=== PATIENT | male | born 1980 | race Caucasian/White ===

== ENCOUNTER 2021-06-09 09:47 | Emergency (ER) | payer OTHER, SELFPAY ==
[2021-06-09 09:56] VITALS: BP 152/93; PULSE 80; RESP 18; TEMP 36.1; O2SAT 98; BMI 34.8
--- NOTE | 2021-06-09 10:33 | ED_ITS ---
HPI - Animal Bite General Chief Complaint: Animal Bite Stated Complaint: CAT BITE Time Seen by Provider: 06/09/21 10:33 Source: patient Mode of arrival: ambulatory Limitations: no limitations History of Present Illness HPI narrative: 41-year-old male is here today after sustaining a cat bite yesterday. Patient reports that his CT is up-to-date with vaccinations. Patient does not remember when he last had a tetanus vaccine but it was longer than 5 years ago. Patient reports that his some swelled up when he will come this morning. He washed it with hot water and alcohol. MD complaint: animal bite (Patient's cat up-to-date with vaccinations) Onset (ago): day(s) (Yesterday) Animal: cat Description of animal: household pet Mechanism: bite Location: other (Left thumb) Related Data Previous Rx's Medication Instructions Recorded amoxicillin 875 mg-potassium 1 tab PO BID 10 Days #20 tab 06/09/21 clavulanate 125 mg tablet (Augmentin) Allergies Allergy/AdvReac Type Severity Reaction Status Date / Time No Known Allergies Allergy Verified 06/09/21 09:58 Review of Systems Review of Systems: Constitutional : No Weight loss, No Fever, No Chills, No Night Sweats, No Fatigue, No Malaise ENT/Mouth : No Hearing loss, No Ear Pain, No Nasal Congestion, No Sinus Pain, No Hoarseness, No sore throat, No Rhinorrhea, No Swallowing Difficulty Eyes: No Eye Pain, No Swelling, No Redness, No Foreign Body, No Discharge, No Vision Changes Cardiovascular : No Chest Pain, No SOB, No Dyspnea on Exertion, No Orthopnea, No Edema, No Palpitations Respiratory : No Cough, No Sputum, No Wheezing, No Smoke Exposure, No Dyspnea Gastrointestinal : No Nausea, No Vomiting, No Diarrhea, No Constipation, No abdominal Pain, No Hematochezia, No Melena Genitourinary : no irregular bleeding, No Dysuria, No Urinary Frequency, No Hematuria, No Urinary Incontinence, No Urgency, No Flank Pain, No Urinary Flow Changes, No Hesitancy Musculoskeletal : No joint pain, No Myalgias, No Joint Swelling Skin : No Skin Lesions, No rash, cat bite to left thumb Neuro : No Weakness, No Numbness, No Paresthesias, No Loss of Consciousness, No Dizziness, No Headache Yes all other systems are reviewed and are negative PMFSH Past Medical History Medical History (Updated 06/09/21 @ 10:47 by Shu Sal [facility]) No known health problems Social History Social History Advance Directives: No Advance Directives Information Provided: No Physical Exam Vital Signs: Vital Signs: Last Vital Signs Temp 97.0 F 06/09/21 09:56 Pulse 80 06/09/21 09:56 Resp 18 06/09/21 09:56 BP 152/93 H 06/09/21 09:56 Pulse Ox 98 06/09/21 09:56 Body Mass Index 34.8 Const: General: healthy appearing, no acute distress and well developed Nutritional Appearance: well nourished Orientation/consciousness: patient oriented x3 Neck: Neck: Yes normal visual inspection, Yes full ROM and Yes trachea midline Thyroid: Thyroid normal Resp: Auscultation: clear to auscultation bilaterally Cardio: Rate: regular rate Rhythm: regular rhythm GI: Inspection: Yes normal to inspection and No distended Palpation (GI): No hepatosplenomegaly present Auscultation: normal bowel sounds Skin: Other: General skin exam: elasticity normal, turgor normal and dry skin Trauma: other (Cat bite to left thumb) Neuro: General: patient oriented x3 Course Course Course Narrative: 40-year-old male is here today after sustaining a cat bite yesterday. Patient reports that this is his house pet and it is up-to-date with vaccinations. Patient's last tetanus vaccine was over 5 years ago. Will update tetanus today. Patient reports that his fingers swelled up this morning and he cleaned it well with hot water and alcohol. I will start him on Augmentin. He was instructed to monitor his bite for increased redness, drainage, swelling and warmth. He was instructed to finish all of the antibiotics. He was instructed to return to emergency department if his symptoms will get worse Discharge Plan Discharge Clinical Impression: Bite by animal Cat bite Qualifiers: Encounter type: initial encounter Qualified Code(s): W55.01XA - Bitten by cat, initial encounter Patient Disposition: Home, Self-Care Instructions: Animal Bite (ED) Additional Instructions: You were seen here today after cat bite. Make sure you keep the area clean. Your tetanus was updated today. You were started on Augmentin please finish all the antibiotics. You may return to emergency department if her symptoms will get worse or if you experience any additional concerning symptoms. Please follow-up with your primary care doctor for wound check or you may return to emergency department the wound will be getting worse. Prescriptions: New amoxicillin-pot clavulanate [Augmentin] 875-125 mg tablet 1 tab PO BID 10 Days Qty: 20 RF: 0 Interventions: ED Discharge Assessment Last Done: 06/09/21 10:56 Discharge Date/Time: 06/09/21 10:56
[2021-06-09] MEDS: Amoxicillin/Potassium Clav 875 MG TABLET PO (10:40)
[2021-06-09] MEDS: Diphth,Pertus(ACell),Tet Adult 0.5 ML SYRINGE IM (10:40)
== END 2021-06-09 10:56 | disposition home or self-care (01) ==
PROVIDERS: Emergency Provider Emergency Medicine
DX: S60.372A Other superficial bite of left thumb, initial encounter (principal); S60.512A Abrasion of left hand, initial encounter; M79.642 Pain in left hand; W55.01XA Bitten by cat, initial encounter; Y93.9 Activity, unspecified; Y92.9 Unspecified place or not applicable; Y99.9 Unspecified external cause status
CPT/HCPCS: 90471; 90715; 99283; 99284

== ENCOUNTER 2021-09-18 09:38 | Outpatient (REF) | payer OTHER, SELFPAY ==
[2021-09-18 10:32] LABS: Binax Internal Control QC Valid; Binax Now Covid-19 Ag Positive (Negative)
== END 2021-09-18 09:39 | disposition home or self-care (01) ==
LOC: HO.LAB 09:38
PROVIDERS: Visit Provider Internal Medicine
DX: Z20.822 Contact with and (suspected) exposure to COVID-19 (principal)
CPT/HCPCS: C9803

== ENCOUNTER 2021-10-01 10:39 | Outpatient (REF) | payer OTHER, SELFPAY ==
[2021-10-01 11:15] LABS: Binax Internal Control QC Valid; Binax Now Covid-19 Ag Negative (Negative)
== END 2021-10-01 10:40 | disposition home or self-care (01) ==
LOC: HO.LAB 10:39
PROVIDERS: PCP Internal Medicine; Visit Provider Internal Medicine
DX: Z20.822 Contact with and (suspected) exposure to COVID-19 (principal)
CPT/HCPCS: C9803

== ENCOUNTER 2021-12-21 09:35 | Emergency (ER) | payer OTHER, SELFPAY ==
--- NOTE | ~2021-12-21 | CT_ITS ---
EXAMINATION: CT ABDOMEN AND PELVIS WITH CONTRAST CLINICAL INFORMATION: 41-year-old male with left lower quadrant abdominal pain COMPARISON: None TECHNIQUE: Multidetector volumetric images were obtained from the superior aspect of the liver through the pubic symphysis following administration 85 mL of Omnipaque 350 intravenous contrast. Sagittal and coronal reformatted images were obtained on the technologist's workstation. Oral contrast: No This CT examination was performed using dose optimization techniques as appropriate, variously including the following: *Automated exposure control *Adjustment of mA and/or kV according to patient size (this includes techniques or standardized protocols for targeted exams where dose is matched to indication/reason for exam; i.e. extremities or head) *Use of iterative reconstruction technique DLP: 919 mGy-cm FINDINGS: LUNG BASES: Linear atelectasis in the basilar. LIVER, GALLBLADDER, AND BILIARY TREE: Liver is of low attenuation heterogeneous due to hepatic steatosis without intrahepatic masses or ductal dilatation seen. The gallbladder is unremarkable with no evidence of radiopaque gallstones, gallbladder wall thickening, or obvious pericholecystic inflammatory changes. PANCREAS: Unremarkable. SPLEEN: Unremarkable. ADRENAL GLANDS: Unremarkable. KIDNEYS AND URETERS: The kidneys are normal in size, shape, and attenuation. No hydronephrosis, hydroureter, or calculi seen. No perinephric stranding. BLADDER: Unremarkable. GASTROINTESTINAL TRACT: The small and large bowel are unremarkable. The appendix is unremarkable. There is fat-containing ovoid shape 2.8 cm long density adjacent to the descending, with high density seen rim, surrounded by inflammatory fat stranding and mild thickening of adjacent peritoneum. Loops of colon are unremarkable with a few scattered diverticuli. Appendix not identified. Findings consistent with the appearance of epiploic appendicitis. ABDOMINAL WALL: There is small fat-containing umbilical hernia. There is small fat-containing inguinal hernias. LYMPH NODES: Normal. VASCULAR: Unremarkable. PELVIC VISCERA: There is small amount of fluid in the pelvis OSSEOUS STRUCTURES: Unremarkable. CT/CT abdomen pelvis w con IMPRESSION: Epiploic appendicitis. Hepatic steatosis. Small inguinal and umbilical hernia with fat. Basilar atelectasis Fleischner guidelines were followed.
[2021-12-21 09:47] VITALS: BP 129/84; PULSE 72; RESP 18; TEMP 36.1; O2SAT 98; BMI 39.2
--- NOTE | 2021-12-21 10:58 | ED_ITS ---
HPI - Abdominal Pain General Chief Complaint: Abdominal Pain Stated Complaint: abd pain Time Seen by Provider: 12/21/21 10:57 Source: patient Mode of arrival: ambulatory Limitations: no limitations History of Present Illness MD elicited complaint: abdominal pain Pertinent past history: none Onset (ago): day(s) (4) Pain Consistency: other (worsening) Location: LLQ Severity: severe Quality: aching and fullness Radiation: none Migration to: no migration Exacerbating factors: movement Relieving factors: nothing Associated symptoms: nausea, diarrhea and chills Related Data Previous Rx's Medication Instructions Recorded amoxicillin 875 mg-potassium 1 tab PO BID 10 Days #20 tab 06/09/21 clavulanate 125 mg tablet (Augmentin) hydrocodone 5 mg-acetaminophen 325 1 tab PO Q6H PRN #10 tab 12/21/21 mg tablet ibuprofen 600 mg tablet 600 mg PO Q6H PRN #30 tab 12/21/21 ondansetron 4 mg disintegrating 4 mg PO Q8H PRN #20 tab 12/21/21 tablet Allergies Allergy/AdvReac Type Severity Reaction Status Date / Time No Known Allergies Allergy Verified 06/09/21 09:58 Review of Systems Review of Systems Constitutional : No Weight loss, No Fever, pos Chills ENT/Mouth : No sore throat, No Rhinorrhea Eyes: No Swelling, No Redness Cardiovascular : No Chest Pain, No SOB, NoEdema Respiratory : No Cough, No Sputum, No Wheezing Gastrointestinal : Positive Nausea, no Vomiting, positive Diarrhea, positive abdominal Pain, No Hematochezia, No Melena Genitourinary : No Dysuria, No Urinary Frequency, No Hematuria, No Urgency Musculoskeletal : No joint pain, No Myalgias, No Joint Swelling Skin : No Skin Lesions, No rash Neuro : No Weakness, No Numbness, No Dizziness, No Headache Psych : No Anxiety/Panic, No Depression Heme/Lymph: No Bruising, No Lymphadenopathy Endocrine : No Polyuria, No Polydipsia All other systems reviewed and are negative. [facility] Past Medical History Attestation statement: The following information was validated with the patient. Medical History No known health problems Social History Social History (Updated 12/21/21 @ 11:29 by Luz Maria Moody DO) Alcohol intake: never Patient Tobacco Use Status: Current everyday Tobacco user Use of substances other than those prescribed or required for medical reasons: No Advance Directives: Yes Advance Directives Information Provided: Yes Advance Directives on File: No Physical Exam ED Vital Signs: Vital Signs - 24 hr 12/21/21 09:47 12/21/21 11:46 Temperature 96.9 F 97.9 F Pulse Rate 72 65 Respiratory Rate 18 18 Blood Pressure 129/84 126/81 Pulse Oximetry 98 96 BMI result Body Mass Index 39.2 Appearance: Alert. Oriented X3. No acute distress. Eyes: Pupils equal, round and reactive to light. ENT: Pharynx normal. Neck: Normal inspection. Neck supple. CVS: Normal heart rate and rhythm. Pulses normal. Respiratory: No respiratory distress. Breath sounds normal. Abdomen: Soft and moderate LLQ ttp with rebound noted Skin: Skin warm and dry. Normal skin color. Normal skin turgor. Extremities: No lower extremity edema. No calf ttp Neuro: Oriented X 3. No motor deficit. No sensory deficit. Course Course Course Narrative: no WBC count, epiploic appendagitis MDM - Abdominal Pain MDM Narrative Medical decision making narrative: 41 yo male with no PMH or surgeries comes in with c/o LLQ pain n/v/d chills he has rebound on exam. Symptoms present x 4 days. At this time will need labs, cultures, lactic acid. CT scan for diverticulitis - given rebound there is a concern for perforation vs abscess. Dispo per results and findings. Lab Data Result diagrams: 12/21/21 11:33 12/21/21 11:33 Labs: Lab Results 12/21/21 12/21/21 12/21/21 Range/Units 11:33 11:33 11:33 WBC 7.1 (4.8-10.8) X10*3/uL RBC 4.84 (4.60-5.80) X10*6/uL Hgb 13.5 L (14.0-18.0) g/dl Hct 40.5 L (42.0-52.0) % MCV 83.7 (80.0-98.0) fL MCH 27.9 (27.0-33.0) pg MCHC 33.3 (31.0-36.0) g/dl RDW 11.5 (11.0-16.0) % Plt Count 216 (160-400) X10*3/uL MPV 10.5 (9.4-12.4) fL Immature Gran % (Auto) 0.1 (0.0-0.4) % Neut % (Auto) 47.6 (45-73) % Lymph % (Auto) 40.0 (20-40) % Charlton % (Auto) 9.6 (2-11) % Eos % (Auto) 2.4 (0-4) % Baso % (Auto) 0.3 (0-2) % Lymph # (Auto) 2.8 (1.2-4.9) X10*3/uL Charlton # (Auto) 0.7 (0.1-1.2) X10*3/uL Eos # (Auto) 0.2 (0.0-0.4) X10*3/uL Baso # (Auto) 0.0 (0.0-0.2) X10*3/uL Abs Immat Gran (auto) 0.01 (0.00-0.03) X10*3/uL Absolute Neuts (auto) 3.4 (2.0-8.3) x10*3/uL Absolute Nucleated RBC 0.000 (0.0-0.012) X10*3/uL Nucleated RBC % (auto) 0.0 (0.0-0.2) /100WBC Sodium 139 (135-145) mmol/L Potassium 3.9 (3.3-5.1) mmol/L Chloride 106 (96-108) mmol/L Carbon Dioxide 25 (22-29) mmol/L Anion Gap 12 (12-20) BUN 13 (9-16) mg/dL Creatinine 0.82 (0.5-1.4) mg/dL Estim Creat Clear Calc 158.2 Estimated GFR > 60 Random Glucose 93 (60-115) mg/dL Lactic Acid 0.6 (0.5-2.0) mmol/L Calcium 9.8 (8.4-10.2) mg/dL Magnesium 2.0 (1.6-2.6) mg/dL Total Bilirubin 0.7 (0.0-1.0) mg/dL Direct Bilirubin 0.2 (0.0-0.5) mg/dL AST 24 (5-37) U/L ALT 51 H (0-40) U/L Alkaline Phosphatase 66 (39-117) U/L Total Protein 7.1 (6.5-8.0) g/dL Albumin 4.5 (3.5-5.0) g/dL Lipase 14 (8-78) U/L Urine Color Urine Appearance Urine pH (5.0-8.0) Ur Specific Huggins (1.005-1.025) Urine Protein (NEG-TRACE) MG/DL Urine Glucose (UA) (NEG) MG/DL Urine Ketones (NEG) MG/DL Urine Blood (NEG) Urine Nitrite (NEG) Ur Leukocyte Esterase (NEG) COVID-19 (PORTER) (Negative) COVID-19 Clin Com 12/21/21 12/21/21 Range/Units 11:33 11:33 WBC (4.8-10.8) X10*3/uL RBC (4.60-5.80) X10*6/uL Hgb (14.0-18.0) g/dl Hct (42.0-52.0) % MCV (80.0-98.0) fL MCH (27.0-33.0) pg MCHC (31.0-36.0) g/dl RDW (11.0-16.0) % Plt Count (160-400) X10*3/uL MPV (9.4-12.4) fL Immature Gran % (Auto) (0.0-0.4) % Neut % (Auto) (45-73) % Lymph % (Auto) (20-40) % Charlton % (Auto) (2-11) % Eos % (Auto) (0-4) % Baso % (Auto) (0-2) % Lymph # (Auto) (1.2-4.9) X10*3/uL Charlton # (Auto) (0.1-1.2) X10*3/uL Eos # (Auto) (0.0-0.4) X10*3/uL Baso # (Auto) (0.0-0.2) X10*3/uL Abs Immat Gran (auto) (0.00-0.03) X10*3/uL Absolute Neuts (auto) (2.0-8.3) x10*3/uL Absolute Nucleated RBC (0.0-0.012) X10*3/uL Nucleated RBC % (auto) (0.0-0.2) /100WBC Sodium (135-145) mmol/L Potassium (3.3-5.1) mmol/L Chloride (96-108) mmol/L Carbon Dioxide (22-29) mmol/L Anion Gap (12-20) BUN (9-16) mg/dL Creatinine (0.5-1.4) mg/dL Estim Creat Clear Calc Estimated GFR Random Glucose (60-115) mg/dL Lactic Acid (0.5-2.0) mmol/L Calcium (8.4-10.2) mg/dL Magnesium (1.6-2.6) mg/dL Total Bilirubin (0.0-1.0) mg/dL Direct Bilirubin (0.0-0.5) mg/dL AST (5-37) U/L ALT (0-40) U/L Alkaline Phosphatase (39-117) U/L Total Protein (6.5-8.0) g/dL Albumin (3.5-5.0) g/dL Lipase (8-78) U/L Urine Color YELLOW Urine Appearance CLEAR Urine pH 6.5 (5.0-8.0) Ur Specific Huggins 1.020 (1.005-1.025) Urine Protein NEG (NEG-TRACE) MG/DL Urine Glucose (UA) NEG (NEG) MG/DL Urine Ketones NEG (NEG) MG/DL Urine Blood NEG (NEG) Urine Nitrite NEG (NEG) Ur Leukocyte Esterase NEG (NEG) COVID-19 (PORTER) Negative (Negative) COVID-19 Clin Com See Note Discharge Plan Discharge Clinical Impression: Abdominal pain, Epiploic appendagitis Patient Disposition: Home, Self-Care Instructions: Abdominal Pain (ED) Additional Instructions: return to ED for any worsening symptoms or concerns FINDINGS: LUNG BASES: Linear atelectasis in the basilar.? LIVER, GALLBLADDER, AND BILIARY TREE: Liver is of low attenuation heterogeneous due to hepatic steatosis without intrahepatic masses or ductal dilatation seen. The gallbladder is unremarkable with no evidence of radiopaque gallstones, gallbladder wall thickening, or obvious pericholecystic inflammatory changes.? PANCREAS: Unremarkable.? SPLEEN: Unremarkable.? ADRENAL GLANDS: Unremarkable.? KIDNEYS AND URETERS: The kidneys are normal in size, shape, and attenuation. No hydronephrosis, hydroureter, or calculi seen. No perinephric stranding. ? BLADDER: Unremarkable.? GASTROINTESTINAL TRACT: The small and large bowel are unremarkable. The appendix is unremarkable. There is fat-containing ovoid shape 2.8 cm long density adjacent to the descending, with high density seen rim, surrounded by inflammatory fat stranding and mild thickening of adjacent peritoneum. Loops of colon are unremarkable with a few scattered diverticuli. Appendix not identified. Findings consistent with the appearance of epiploic appendicitis. ABDOMINAL WALL: There is small fat-containing umbilical hernia. There is small fat-containing inguinal hernias.? LYMPH NODES: Normal. VASCULAR: Unremarkable. PELVIC VISCERA: There is small amount of fluid in the pelvis? OSSEOUS STRUCTURES: Unremarkable.? CT/CT abdomen pelvis w con IMPRESSION: Epiploic appendicitis. Hepatic steatosis. Small inguinal and umbilical hernia with fat. Basilar atelectasis? ? Fleischner guidelines were followed. Prescriptions: New hydrocodone-acetaminophen 5-325 mg tablet 1 tab PO Q6H PRN (Reason: pain) Qty: 10 0RF ibuprofen 600 mg tablet 600 mg PO Q6H PRN (Reason: pain) Qty: 30 0RF ondansetron 4 mg tablet,disintegrating 4 mg PO Q8H PRN (Reason: nausea and vomiting) Qty: 20 0RF No Action amoxicillin-pot clavulanate [Augmentin] 875-125 mg tablet 1 tab PO BID 10 Days Qty: 20 0RF Referrals: Valencia Lubin MD [Primary Care Provider] - 3 days (if not better) Stand Alone Forms: Work/School Release
[2021-12-21 11:39] LABS: MANUAL DIFF FLAG NO
[2021-12-21 11:42] LABS: Basophils Percent Auto 0.3 % (0-2); Eosinophils Absolute Auto 0.2 X10*3/uL (0.0-0.4); Eosinophils Percent Auto 2.4 % (0-4); Hematocrit 40.5 % (42.0-52.0); Hemoglobin 13.5 g/dl (14.0-18.0); Imm Gran Abs Auto 0.01 X10*3/uL (0.00-0.03); Imm Gran Pct Auto 0.1 % (0.0-0.4); Lymphocytes Absolute Auto 2.8 X10*3/uL (1.2-4.9); Mean Corpuscular HGB Conc 33.3 g/dl (31.0-36.0); Mean Corpuscular Hemoglobin 27.9 pg (27.0-33.0); Mean Corpuscular Volume 83.7 fL (80.0-98.0); Mean Platelet Volume 10.5 fL (9.4-12.4); Monocytes Absolute Auto 0.7 X10*3/uL (0.1-1.2); Monocytes Percent Auto 9.6 % (2-11); Neutrophils Absolute Auto 3.4 x10*3/uL (2.0-8.3); Neutrophils Percent Auto 47.6 % (45-73); Platelet Count 216 X10*3/uL (160-400); Red Blood Count 4.84 X10*6/uL (4.60-5.80); Red Cell Distribution Width 11.5 % (11.0-16.0); White Blood Count 7.1 X10*3/uL (4.8-10.8)
[2021-12-21] MEDS: Morphine Sulfate 4 MG/ML CARTRIDGE IVPUSH (11:42)
[2021-12-21] MEDS: ondansetron HCL 4 MG/2 ML VIAL IVPUSH (11:42)
[2021-12-21] MEDS: 0.9 % Sodium Chloride 1,000 ML 999 ML IVCONT (11:42)
[2021-12-21 11:43] LABS: Appearance Urine CLEAR; Color Urine YELLOW; Glucose Urine UA NEG (NEG); Leukocyte Esterase Urine NEG (NEG); Nitrite Urine NEG (NEG); PH 6.5 (5.0-8.0); Urine Blood NEG (NEG); Urine Ketones NEG (NEG); Urine Protein NEG (NEG-TRACE)
--- NOTE | 2021-12-21 11:45 | PC.NURSE ---
patient a&ox3, vss, pt ambulated to bathroom-urine obtained, covid swab obtained, iv established, labs drawn, pt medicated per order, c/o 03/17 llq abd pain, call roach within reach will continue to monitor.
[2021-12-21 11:46] VITALS: BP 126/81; PULSE 65; RESP 18; TEMP 36.6; O2SAT 96
[2021-12-21 11:53] LABS: Lactic Acid 0.6 mmol/L (0.5-2.0)
[2021-12-21 11:59] LABS: Alanine Aminotransferase 51 U/L (0-40); Albumin Level 4.5 g/dL (3.5-5.0); Alkaline Phosphatase 66 U/L (39-117); Anion Gap 12 (12-20); Aspartate Amino Transferase 24 U/L (5-37); Bilirubin Direct 0.2 mg/dL (0.0-0.5); Bilirubin Total 0.7 mg/dL (0.0-1.0); Blood Urea Nitrogen 13 mg/dL (9-16); Calcium 9.8 mg/dL (8.4-10.2); Carbon Dioxide 25 mmol/L (22-29); Chloride 106 mmol/L (96-108); Creatinine Clr Calc Pharmacy 158.2; Estimated Glomerular Filt Rate > 60; Glucose Random 93 mg/dL (60-115); Lipase 14 U/L (8-78); Potassium 3.9 mmol/L (3.3-5.1); Sodium 139 mmol/L (135-145); Total Protein 7.1 g/dL (6.5-8.0)
[2021-12-21] MEDS: iohexoL 350 MG/ML 100 ML INFUS..BTL 85 ML IV (12:10)
[2021-12-21 12:21] LABS: COVID-19 Test Negative (Negative); IDNOW Serial# 16C4AD1C
[2021-12-21 13:38] VITALS: BP 122/77; PULSE 65; RESP 18; TEMP 36.5; O2SAT 97
--- NOTE | 2021-12-21 13:38 | PC.NURSE ---
patient sleeping, woke to verbal stimulus, vss, pt c/o 03/17 pain to llq abdomen, call roach within reach, will continue to monitor.
== END 2021-12-21 14:01 | disposition home or self-care (01) ==
PROVIDERS: Emergency Provider Emergency Medicine; PCP Internal Medicine
DX: R10.32 Left lower quadrant pain (principal); K63.89 Other specified diseases of intestine; F17.200 Nicotine dependence, unspecified, uncomplicated; Z71.6 Tobacco abuse counseling; Z20.822 Contact with and (suspected) exposure to COVID-19; Z79.899 Other long term (current) drug therapy
CPT/HCPCS: 74177; 80048; 80076; 81003; 83605; 83690; 83735; 85025; 87040; 87635; 96361; 96374; 96375; 99284; J2270; J2405; Q9967

== ENCOUNTER → 2021-12-26 13:40 | Outpatient (BNVA) | payer OTHER, SELFPAY | PROVIDERS: PCP Internal Medicine; Referring Provider Internal Medicine; Visit Provider Physician Assistant | DX: Z13.89 Encounter for screening for other disorder (principal) ==

== ENCOUNTER 2022-01-25 08:05 | Outpatient (REF) | payer OTHER, SELFPAY ==
[2022-01-25 11:06] LABS: MANUAL DIFF FLAG NO
[2022-01-25 11:19] LABS: Basophils Percent Auto 0.5 % (0-2); Eosinophils Absolute Auto 0.2 X10*3/uL (0.0-0.4); Eosinophils Percent Auto 3.9 % (0-4); Hemoglobin 14.6 g/dl (14.0-18.0); Imm Gran Abs Auto 0.01 X10*3/uL (0.00-0.03); Imm Gran Pct Auto 0.2 % (0.0-0.4); Lymphocytes Absolute Auto 2.2 X10*3/uL (1.2-4.9); Lymphocytes Percent Auto 36.4 % (20-40); Mean Corpuscular HGB Conc 32.4 g/dl (31.0-36.0); Mean Corpuscular Hemoglobin 27.4 pg (27.0-33.0); Mean Corpuscular Volume 84.4 fL (80.0-98.0); Mean Platelet Volume 11.2 fL (9.4-12.4); Monocytes Absolute Auto 0.5 X10*3/uL (0.1-1.2); Monocytes Percent Auto 8.6 % (2-11); Neutrophils Absolute Auto 3.1 x10*3/uL (2.0-8.3); Neutrophils Percent Auto 50.4 % (45-73); Platelet Count 254 X10*3/uL (160-400); Red Blood Count 5.33 X10*6/uL (4.60-5.80); Red Cell Distribution Width 11.9 % (11.0-16.0); White Blood Count 6.2 X10*3/uL (4.8-10.8)
[2022-01-25 11:32] LABS: Alanine Aminotransferase 64 U/L (0-40); Albumin Level 4.7 g/dL (3.5-5.0); Alkaline Phosphatase 65 U/L (39-117); Anion Gap 11 (12-20); Aspartate Amino Transferase 25 U/L (5-37); Bilirubin Total 0.4 mg/dL (0.0-1.0); Blood Urea Nitrogen 8 mg/dL (9-16); Calcium 10.3 mg/dL (8.4-10.2); Carbon Dioxide 31 mmol/L (22-29); Chloride 106 mmol/L (96-108); Cholesterol 182 mg/dL; Estimated Glomerular Filt Rate > 60; Glucose Fasting 89 mg/dL (60-99); HDL Cholesterol 43 mg/dL; LDL Cholesterol Calculated 117 mg/dl; Potassium 5.3 mmol/L (3.3-5.1); Sodium 143 mmol/L (135-145); Total Protein 7.5 g/dL (6.5-8.0); Triglycerides 110 mg/dL
[2022-01-25 11:58] LABS: TSH reflex Free T4 1.76 uIU/mL (0.32-4.0)
== END 2022-01-25 08:06 | disposition home or self-care (01) ==
LOC: HO.HMGCLDS 08:05
PROVIDERS: Visit Provider Internal Medicine
DX: Z00.01 Encounter for general adult medical examination with abnormal findings (principal); E66.09 Other obesity due to excess calories; K63.89 Other specified diseases of intestine; K76.0 Fatty (change of) liver, not elsewhere classified; R10.32 Left lower quadrant pain; R93.5 Abnormal findings on diagnostic imaging of other abdominal regions, including retroperitoneum
CPT/HCPCS: 36415; 80053; 80061; 84443; 85025

== ENCOUNTER 2022-02-06 17:41 | Emergency (ER) | payer OTHER, SELFPAY ==
--- NOTE | ~2022-02-06 | CT_ITS ---
EXAMINATION: CT ABDOMEN AND PELVIS WITHOUT CONTRAST CLINICAL INFORMATION: Left lower abdominal pain with known history of hernia COMPARISON: CT abdomen pelvis 12/21/2021 TECHNIQUE: Multidetector volumetric imaging was performed from the superior aspect of the liver through the pubic symphysis. Sagittal and coronal reformatted images were obtained on the technologist's workstation. This CT examination was performed using dose optimization techniques as appropriate, variously including the following: *Automated exposure control *Adjustment of mA and/or kV according to patient size (this includes techniques or standardized protocols for targeted exams where dose is matched to indication/reason for exam; i.e. extremities or head) *Use of iterative reconstruction technique DLP: 1017 mGy-cm FINDINGS: LUNG BASES: The visualized lung bases are unremarkable. LIVER, GALLBLADDER, AND BILIARY TREE: The liver is enlarged measuring 21.6 cm in greatest length and demonstrates decreased attenuation consistent with hepatic steatosis. Normal in size, shape, and attenuation. No focal hepatic lesion or biliary ductal dilatation is present. The gallbladder is unremarkable with no evidence of radiopaque gallstones, gallbladder wall thickening, or obvious pericholecystic inflammatory changes. PANCREAS: Unremarkable. SPLEEN: Mild splenomegaly with the spleen measuring 12.8 cm in greatest transverse dimension. ADRENAL GLANDS: Unremarkable. KIDNEYS AND URETERS: The kidneys are normal in size, shape, and attenuation. No hydronephrosis, hydroureter, or calculi seen. No perinephric stranding. BLADDER: Unremarkable. GASTROINTESTINAL TRACT: The small and large bowel are unremarkable. The appendix is unremarkable. ABDOMINAL WALL: No significant hernia is appreciated. LYMPH NODES: Normal. VASCULAR: Unremarkable. PELVIC VISCERA: Unremarkable. OSSEOUS STRUCTURES: Unremarkable. CT/CT abdomen pelvis wo con IMPRESSION: A cause for the patient's acute left lower quadrant pain has not been found. Incidental note made of enlarged fatty liver and splenomegaly Fleischner guidelines were followed.
[2022-02-06 18:37] VITALS: BP 119/40; PULSE 84; RESP 18; TEMP 36.6; O2SAT 100; BMI 383.5
[2022-02-06 20:18] LABS: MANUAL DIFF FLAG NO
[2022-02-06 20:21] LABS: Basophils Percent Auto 0.4 % (0-2); Eosinophils Absolute Auto 0.2 X10*3/uL (0.0-0.4); Eosinophils Percent Auto 2.1 % (0-4); Hematocrit 43.4 % (42.0-52.0); Hemoglobin 14.6 g/dl (14.0-18.0); Imm Gran Abs Auto 0.02 X10*3/uL (0.00-0.03); Imm Gran Pct Auto 0.2 % (0.0-0.4); Lymphocytes Absolute Auto 2.9 X10*3/uL (1.2-4.9); Lymphocytes Percent Auto 36.2 % (20-40); Mean Corpuscular HGB Conc 33.6 g/dl (31.0-36.0); Mean Corpuscular Hemoglobin 27.9 pg (27.0-33.0); Mean Corpuscular Volume 82.8 fL (80.0-98.0); Mean Platelet Volume 10.8 fL (9.4-12.4); Monocytes Absolute Auto 0.8 X10*3/uL (0.1-1.2); Monocytes Percent Auto 9.7 % (2-11); Neutrophils Absolute Auto 4.1 x10*3/uL (2.0-8.3); Neutrophils Percent Auto 51.4 % (45-73); Platelet Count 244 X10*3/uL (160-400); Red Blood Count 5.24 X10*6/uL (4.60-5.80); Red Cell Distribution Width 11.7 % (11.0-16.0)
[2022-02-06 20:39] LABS: Alanine Aminotransferase 55 U/L (0-40); Albumin Level 4.7 g/dL (3.5-5.0); Alkaline Phosphatase 68 U/L (39-117); Anion Gap 11 (12-20); Aspartate Amino Transferase 24 U/L (5-37); Bilirubin Direct < 0.2 mg/dL (0.0-0.5); Bilirubin Total 0.2 mg/dL (0.0-1.0); Blood Urea Nitrogen 16 mg/dL (9-16); Calcium 10.1 mg/dL (8.4-10.2); Carbon Dioxide 27 mmol/L (22-29); Chloride 106 mmol/L (96-108); Creatinine Clr Calc Pharmacy 852.4; Estimated Glomerular Filt Rate > 60; Glucose Random 93 mg/dL (60-115); Potassium 4.6 mmol/L (3.3-5.1); Sodium 139 mmol/L (135-145); Total Protein 7.6 g/dL (6.5-8.0)
--- NOTE | 2022-02-06 21:46 | ED.ABDPAIN ---
HPI - Abdominal Pain General Chief Complaint: Abdominal Pain Stated Complaint: abd pain Time Seen by Provider: 02/06/22 18:20 Source: patient Mode of arrival: ambulatory Limitations: no limitations History of Present Illness HPI narrative: 41-year-old male came in for evaluation of abdominal pain. Left lower quadrant abdominal pain for 4 weeks, started as severe pain now pain is milder but more or less constant 5/10, pain sometimes associated with nausea but no vomiting, patient had a normal bowel movement and passing flatus, no change in bowel habitus, nothing make it worse or better, pain is mostly localized in the left lower quadrant area with no radiation. No fever, no chills, no urinary frequency, no dysuria. Patient has no past surgical history. 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 Related Data Previous Rx's Medication Instructions Recorded ibuprofen 600 mg tablet 600 mg PO Q6H PRN #30 tab 12/21/21 docusate sodium 100 mg capsule 200 mg PO BEDTIME #60 cap 12/26/21 (Colace) docusate sodium 100 mg capsule 200 mg PO BEDTIME #60 cap 12/26/21 (Colace) metronidazole 500 mg tablet 500 mg PO Q8H #30 tab 12/26/21 omeprazole 20 mg capsule,delayed 20 mg PO DAILY #30 cap 12/26/21 release promethazine 25 mg tablet 25 mg PO TID PRN 7 Days #21 tab 12/26/21 sennosides 8.6 mg capsule (senna) 8.6 mg PO DAILY PRN #30 cap 12/26/21 Allergies Allergy/AdvReac Type Severity Reaction Status Date / Time ciprofloxacin [From Cipro] Allergy Abdominal Verified 01/25/22 08:04 Pain Review of Systems Review of Systems All other systems are reviewed and are negative Constitutional: Reports as per HPI and Reports no additional constitutional complaints Eyes: Reports as per HPI and Reports no additional eye complaints Reports system reviewed and no additional complaints, except as documented Cardiovascular: Reports as per HPI and Reports no additional cardiovascular complaints Respiratory: Reports as per HPI and Reports no additional respiratory complaints Gastrointestinal: Reports as per HPI and Reports no additional gastrointestinal complaints Genitourinary: Reports no additional female genitourinary complaints Musculoskeletal: Reports no additional musculoskeletal complaints Skin/Breast: Reports system reviewed and no additional complaints, except as docu Psychiatric: Reports no additional psychiatric complaints Endocrine: Reports no additional endocrine complaints Hematologic/Lymphatic: Reports no additional hematologic/lymphatic complaints Allergic/Immunologic: Reports no additional allergic/immunologic complaints Reports system reviewed and no additional complaints, except as documented and Reports Abnormal speech present [facility] Past Medical History Medical History No known health problems Family History Family History Mother Diabetes Social History Social History Household Members Other:: 11 y/o Housing: House Alcohol intake: never Patient Tobacco Use Status: Former Tobacco user Cigarettes Per Day: 3 Smoked in Last 30 Days: Yes e-Cigarette/Vaping Use: Never Used Use of substances other than those prescribed or required for medical reasons: No Advance Directives: No Advance Directives Information Provided: No service: No Current occupational status: employed Cognitive needs: No Hearing needs: No Vision needs: No Physical Exam ED Vital Signs: Vital Signs - 24 hr 02/06/22 18:37 02/06/22 22:00 02/06/22 23:19 Temperature 97.8 F Pulse Rate 84 66 66 Respiratory Rate 18 18 16 Blood Pressure 119/40 L 141/82 H 122/82 Pulse Oximetry 100 99 97 BMI result Body Mass Index 383.5 Vital signs have been reviewed as appeared to be correct. Blood pressure normal. Heart rate normal. Respiration rate normal. Temperature normal. Oxygen saturation normal. Appearance: Alert. Oriented X3. No acute distress. Head: Normal external exam. Normocephalic. Atraumatic. No Franco signs noted. No raccoon eyes noted Eyes: PERRLA. EOMI. Conjunctiva and sclera normal. Eyelids normal. ENT: TM's Normal. Pharynx normal. Uvula midline. Moist mucous membranes. No trismus noted. No drooling noted. No muffled voice noted. Neck: Normal inspection. Neck supple. FROM. No adenopathy. Thyroid Normal. No meningeal signs. No neck mass noted. CVS: Normal heart rate and rhythm. Heart sound normal. No murmurs noted. Pulses normal throughout. Respiratory: No respiratory distress. Painless inspiration. Breath sounds normal. No wheezes/rales/rhonchi noted. Chest nontender. No accessory muscle usage noted or decreased air movement noted. Abdomen: Soft, obese and nontender. Bowel sounds normal in all 4 quadrants. No distention noted. No organomegaly noted. No visible injury noted. Back: No CVA tenderness. Full range of motion noted. Skin: Skin warm and dry. Normal skin color. Normal skin turgor. No rashes/lesions/lacerations noted. Extremities: No lower extremity edema. Extremities exhibit normal range of motion. Extremities nontender. Neuro: Oriented X 3. Cranial nerve exam: II-XII are grossly intact No motor deficit. No sensory deficit. Reflexes normal. Course Course Course Narrative: Assessment and plan. 41 years old male with history of fatty liver, patient had recent CT which showed epiploic appendicitis and fat containing umbilical hernia with small fat containing left inguinal hernia. Patient's labs today are unremarkable, physical exam show no tenderness in abdomen, repeat CT with comparing with the previous CT there is resolution of the epiploic appendicitis, there was no fat containing hernia, no causes of patient's symptoms was revealed on the CT. Patient was reassured and instructed to follow-up with his GI doctor to continue management of fatty liver. MDM - Abdominal Pain Lab Data Attestation: I reviewed the patient's lab results. Result diagrams: 02/06/22 20:11 02/06/22 20:11 Labs: Lab Results 02/06/22 02/06/22 02/06/22 Range/Units 20:11 20:11 22:52 WBC 8.0 (4.8-10.8) X10*3/uL RBC 5.24 (4.60-5.80) X10*6/uL Hgb 14.6 (14.0-18.0) g/dl Hct 43.4 (42.0-52.0) % MCV 82.8 (80.0-98.0) fL MCH 27.9 (27.0-33.0) pg MCHC 33.6 (31.0-36.0) g/dl RDW 11.7 (11.0-16.0) % Plt Count 244 (160-400) X10*3/uL MPV 10.8 (9.4-12.4) fL Immature Gran % (Auto) 0.2 (0.0-0.4) % Neut % (Auto) 51.4 (45-73) % Lymph % (Auto) 36.2 (20-40) % [place] % (Auto) 9.7 (2-11) % Eos % (Auto) 2.1 (0-4) % Baso % (Auto) 0.4 (0-2) % Lymph # (Auto) 2.9 (1.2-4.9) X10*3/uL [place] # (Auto) 0.8 (0.1-1.2) X10*3/uL Eos # (Auto) 0.2 (0.0-0.4) X10*3/uL Baso # (Auto) 0.0 (0.0-0.2) X10*3/uL Abs Immat Gran (auto) 0.02 (0.00-0.03) X10*3/uL Absolute Neuts (auto) 4.1 (2.0-8.3) x10*3/uL Absolute Nucleated RBC 0.000 (0.0-0.012) X10*3/uL Nucleated RBC % (auto) 0.0 (0.0-0.2) /100WBC Sodium 139 (135-145) mmol/L Potassium 4.6 (3.3-5.1) mmol/L Chloride 106 (96-108) mmol/L Carbon Dioxide 27 (22-29) mmol/L Anion Gap 11 L (12-20) BUN 16 D (9-16) mg/dL Creatinine 0.86 (0.5-1.4) mg/dL Estim Creat Clear Calc 852.4 Estimated GFR > 60 Random Glucose 93 (60-115) mg/dL Calcium 10.1 (8.4-10.2) mg/dL Total Bilirubin 0.2 (0.0-1.0) mg/dL Direct Bilirubin < 0.2 (0.0-0.5) mg/dL AST 24 (5-37) U/L ALT 55 H (0-40) U/L Alkaline Phosphatase 68 (39-117) U/L Total Protein 7.6 (6.5-8.0) g/dL Albumin 4.7 (3.5-5.0) g/dL Lipase 14 (8-78) U/L Urine Color YELLOW Urine Appearance CLEAR Urine pH 6.5 (5.0-8.0) Ur Specific [place] 1.020 (1.005-1.025) Urine Protein NEG (NEG-TRACE) MG/DL Urine Glucose (UA) NEG (NEG) MG/DL Urine Ketones NEG (NEG) MG/DL Urine Blood NEG (NEG) Urine Nitrite NEG (NEG) Ur Leukocyte Esterase NEG (NEG) Imaging Data CT abdomen and pelvis: Attestation: I personally reviewed and interpreted this imaging study as follows: Radiologist's impression: A cause for the patient's acute left lower quadrant pain has not been found. Incidental note made of enlarged fatty liver and splenomegaly? Discharge Plan Discharge Clinical Impression: Abdominal pain, left lower quadrant, Fatty liver Patient Disposition: Home, Self-Care Instructions: Non-Alcoholic Fatty Liver Disease (ED), Liver Disease Diet (DC) Prescriptions: No Action ibuprofen 600 mg tablet 600 mg PO Q6H PRN (Reason: pain) Qty: 30 0RF promethazine 25 mg tablet 25 mg PO TID PRN (Reason: nausea and vomiting) 7 Days Qty: 21 0RF docusate sodium [Colace] 100 mg capsule 200 mg PO BEDTIME Qty: 60 5RF senna 8.6 mg capsule 8.6 mg PO DAILY PRN (Reason: constipation) Qty: 30 1RF docusate sodium [Colace] 100 mg capsule 200 mg PO BEDTIME Qty: 60 5RF metronidazole 500 mg tablet 500 mg PO Q8H Qty: 30 0RF omeprazole 20 mg capsule,delayed release(DR/EC) 20 mg PO DAILY Qty: 30 5RF Referrals: Valencia Lubin MD [Primary Care Provider] - Sarahi Montemayor PA-C [Physician Aquatic Habitat Biologist] -
[2022-02-06 21:56] LABS: Lipase 14 U/L (8-78)
[2022-02-06 22:00] VITALS: BP 141/82; PULSE 66; RESP 18; O2SAT 99
[2022-02-06 22:59] LABS: Appearance Urine CLEAR; Color Urine YELLOW; Glucose Urine UA NEG (NEG); Leukocyte Esterase Urine NEG (NEG); Nitrite Urine NEG (NEG); PH 6.5 (5.0-8.0); Urine Blood NEG (NEG); Urine Ketones NEG (NEG); Urine Protein NEG (NEG-TRACE)
[2022-02-06 23:19] VITALS: BP 122/82; PULSE 66; RESP 16; O2SAT 97
== END 2022-02-06 23:55 | disposition home or self-care (01) ==
PROVIDERS: Emergency Provider Emergency Medicine; PCP Internal Medicine
DX: R10.32 Left lower quadrant pain (principal); K76.0 Fatty (change of) liver, not elsewhere classified
CPT/HCPCS: 36415; 74176; 80053; 81003; 82248; 83690; 85025; 99284

== ENCOUNTER 2025-02-19 20:50 | Emergency (ER) | payer OTHER, SELFPAY ==
--- NOTE | ~2025-02-19 | CT_ITS ---
CLINICAL HISTORY: RLA pain CT Abdomen and Pelvis W Contrast COMPARISON: None FINDINGS: Diffusely hypodense liver consistent with hepatic steatosis. Hepatomegaly. Splenomegaly. Normal kidneys. Normal adrenal glands. Normal pancreas. No visible cholelithiasis. No biliary dilation. No evidence of bowel obstruction. Mild thickening of the vega of the proximal ascending colon mild adjacent fat stranding. No pneumatosis. Colonic diverticulosis without evidence of acute diverticulitis. Normal appendix. Unremarkable bladder. No ascites. No pneumoperitoneum. No lymphadenopathy. No acute fracture. No abdominal aortic aneurysm. IMPRESSION: Findings consistent with colitis involving the ascending colon. Nonemergent/incidental findings above. This document has been electronically signed by: Tang Wynn MD on 02/20/2025 01:24:35
[2025-02-19 20:52] VITALS: BP 147/91; RESP 18; TEMP 36.7; BMI 39.5
--- NOTE | 2025-02-19 20:53 | ED.GENADULT ---
HPI - General Adult General Chief complaint: Abdominal Pain Stated complaint: right lower abd pain sharp stabbing feeling to leg Time Seen by Provider: 02/19/25 22:57 Source: patient Mode of arrival: ambulatory Limitations: no limitations History of Present Illness ED Provider: Dr. Afua Sequeira HPI narrative: Patient comes to the emergency room complaining of most 1 week of sharp right lower quadrant pain radiating towards the right leg. Patient denies any fever or chills. Patient states that the pain also radiates towards the left lower quadrant. Patient denies history of kidney stones or past surgeries. Patient states that earlier today he was a bit nauseous, no vomiting, had 1 episode of diarrhea. Related Data Previous Rx's ?Medication ?Instructions ?Recorded ibuprofen 600 mg tablet 600 mg PO Q6H PRN pain #30 tabs 12/21/21 docusate sodium 100 mg capsule 200 mg (2 x 100 mg) PO BEDTIME #60 12/26/21 (Colace) caps docusate sodium 100 mg capsule 200 mg (2 x 100 mg) PO BEDTIME #60 12/26/21 (Colace) caps metronidazole 500 mg tablet 500 mg PO Q8H #30 tabs 12/26/21 omeprazole 20 mg capsule,delayed 20 mg PO DAILY #30 caps 12/26/21 release promethazine 25 mg tablet 25 mg PO TID PRN nausea and 12/26/21 vomiting 7 days #21 tabs sennosides 8.6 mg capsule (senna) 8.6 mg PO DAILY PRN constipation 12/26/21 #30 caps amoxicillin 500 mg-potassium 1 tab PO TID 7 days #21 tabs 02/20/25 clavulanate 125 mg tablet (Augmentin) Allergies Allergy/AdvReac Type Severity Reaction Status Date / Time ciprofloxacin [From Cipro] Allergy Abdominal Verified 02/19/25 20:54 Pain Review of Systems Review of Systems: Constitutional : No Weight loss, No Fever, No Chills, No Night Sweats, No Fatigue, No Malaise ENT/Mouth : No Hearing loss, No Ear Pain, No Nasal Congestion, No Sinus Pain, No Hoarseness, No sore throat, No Rhinorrhea, No Swallowing Difficulty Eyes: No Eye Pain, No Swelling, No Redness, No Foreign Body, No Discharge, No Vision Changes Cardiovascular : No Chest Pain, No SOB, No Dyspnea on Exertion, No Orthopnea, No Edema, No Palpitations Respiratory : No Cough, No Sputum, No Wheezing, No Smoke Exposure, No Dyspnea Gastrointestinal : Complaining of Nausea, No Vomiting, No Diarrhea, No Constipation, complaining of right lower quadrant pain radiating towards the right leg and left lower quadrant Genitourinary : no irregular bleeding, No Dysuria, No Urinary Frequency, No Hematuria, No Urinary Incontinence, No Urgency, No Flank Pain, No Urinary Flow Changes, No Hesitancy Musculoskeletal : No joint pain, No Myalgias, No Joint Swelling Skin : No Skin Lesions, No rash Neuro : No Weakness, No Numbness, No Paresthesias, No Loss of Consciousness, No Dizziness, No Headache Psych : No Anxiety/Panic, No Depression, No SI/HI/AH/VH, No Social Issues, Heme/Lymph: No Bruising, No Bleeding,No Lymphadenopathy Endocrine : No Polyuria, No Polydipsia, No Temperature Intolerance PMFSH Past Medical History Medical History No known health problems Family History Family History Mother Diabetes Social History Social History Household Members Other:: 11 y/o Housing: House Alcohol intake: never Patient Tobacco Use Status: Former Tobacco user Cigarettes Per Day: 3 e-Cigarette/Vaping Use: Never Used Advance Directives: No Advance Directives Information Provided: No service: No Current occupational status: employed Cognitive needs: No Hearing needs: No Vision needs: No Physical Exam ED Vital Signs: Vital Signs - 24 hr 02/19/25 20:52 02/19/25 21:40 02/19/25 23:38 Temperature 98.1 F 98.2 F 97.8 F Pulse Rate 75 64 Respiratory Rate 18 20 16 Blood Pressure 147/91 H 117/99 H 134/85 Pulse Oximetry 98 99 Oxygen Delivery Method Room Air Room Air BMI result Body Mass Index 39.5 Const Other: Appearance: Alert. Oriented X3. No acute distress. Eyes: Pupils equal, round and reactive to light. ENT: Pharynx normal. Neck: Normal inspection. Neck supple. No lymph nodes noted. No crepitus CVS: Normal heart rate and rhythm. Pulses normal. Normal S1 and S2 Respiratory: No respiratory distress. Breath sounds normal. No Wheezing. No rales Abdomen: Soft , tenderness to palpation in the right lower quadrant, mild rebound, no guarding, negative Alberts's sign Skin: Skin warm and dry. Normal skin color. Normal skin turgor. Extremities: No lower extremity edema. No Lacerations. No Rash Neuro: Oriented X 3. No motor deficit. No sensory deficit. Moving all extremities. No slurred speech. CN 2 through 12 grossly intact Psych: calm, cooperative, normal affect Course Course Course Narrative: This is a rapid medical exam performed by Janak Hoskins NP: Additional HPI, ROS, PE not included below will be deferred to primary provider. Patient is a 44-year-old male presenting with RLQ pain x 1 week. Describes as stabbing. Associated nausea and diarrhea. Plan: labs, UA, will defer imaging to primary provider Medications Administered Discontinued Medications Generic Name Dose Route Start Last Admin Trade Name Freq PRN Reason Stop Dose Admin Iohexol 100 ml 02/19/25 23:29 02/19/25 23:30 Iohexol 350 Mg/Ml 100 Ml Infus..Btl IV 02/19/25 23:30 100 ml ONCE ONE Administration Ketorolac Tromethamine 30 mg 02/19/25 23:13 02/19/25 23:36 Ketorolac Tromethamine 30 Mg/Ml Vial IVPUSH 02/19/25 23:14 30 mg ONCE ONE Administration Ondansetron HCl 4 mg 02/19/25 23:15 02/19/25 23:36 Ondansetron Hcl 4 Mg/2 Ml Vial IVPUSH 02/19/25 23:16 4 mg ONCE ONE Administration Medical Decision Making Medical Decision Making [facility] Narrative: My interpretation of labs: No significant abnormality in patient's hematology chemistry were LFTs. Given patient's physical exam, we will order a CT scan to rule out appendicitis. CT scan consistent with ascending colon colitis Patient was given the 1st dose of p.o. antibiotics here in the emergency room. Patient did not provide a urine sample Differential Diagnosis Differential Diagnoses: The differential diagnosis associated with the presentation includes (Appendicitis, ureterolithiasis, pyelonephritis, UTI, musculoskeletal pain) Admission/Observation Consideration of admission/observation: Escalation of care including admission/observation considered (Given patient's presentation and symptoms, observation/admission was considered) Lab Data MDM Lab Attestation statement: I reviewed the patient's lab results. 02/19/25 21:26 02/19/25 21:05 Labs: Lab Results 02/19/25 02/19/25 Range/Units 21:05 21:26 WBC 6.8 (4.8-10.8) X10*3/uL RBC 5.33 (4.60-5.80) X10*6/uL Hgb 14.8 (14.0-18.0) g/dl Hct 43.1 (42.0-52.0) % MCV 80.9 (80.0-98.0) fL MCH 27.8 (27.0-33.0) pg MCHC 34.3 (31.0-36.0) g/dl RDW 11.7 (11.0-16.0) % Plt Count 241 (160-400) X10*3/uL MPV 10.2 (9.4-12.4) fL Immature Gran % (Auto) 0.1 (0.0-0.4) % Neut % (Auto) 55.0 (45-73) % Lymph % (Auto) 34.5 (20-40) % [place] % (Auto) 8.2 (2-11) % Eos % (Auto) 1.8 (0-4) % Baso % (Auto) 0.4 (0-2) % Lymph # (Auto) 2.4 (1.2-4.9) X10*3/uL [place] # (Auto) 0.6 (0.1-1.2) X10*3/uL Eos # (Auto) 0.1 (0.0-0.4) X10*3/uL Baso # (Auto) 0.0 (0.0-0.2) X10*3/uL Abs Immat Gran (auto) 0.01 (0.00-0.03) X10*3/uL Absolute Neuts (auto) 3.8 (2.0-8.3) x10*3/uL Absolute Nucleated RBC 0.000 (0.0-0.012) X10*3/uL Nucleated RBC % (auto) 0.0 (0.0-0.2) /100WBC Sodium 138 (135-145) mmol/L Potassium 4.9 (3.3-5.1) mmol/L Chloride 112 H (96-108) mmol/L Carbon Dioxide 16 L (22-29) mmol/L Anion Gap 15 (12-20) BUN 15 (9-16) mg/dL Creatinine 0.82 (0.5-1.4) mg/dL Estim Creat Clear Calc 158.2 Estimated GFR > 60 Random Glucose 99 (60-115) mg/dL Calcium 9.4 D (8.4-10.2) mg/dL Magnesium 1.9 (1.6-2.6) mg/dL Total Bilirubin 0.5 (0.0-1.0) mg/dL AST 43 H (5-37) U/L ALT 82 H (0-40) U/L Alkaline Phosphatase 66 (39-117) U/L Total Protein 7.8 (6.5-8.0) g/dL Albumin 4.4 (3.5-5.0) g/dL Independent Interpretation I performed an independent interpretation of an: CT Scan Radiology Impression Discussion of test interpretation with radiology: I have reviewed the radiologist's reading. Radiologist Impression: Diffusely hypodense liver consistent with hepatic steatosis. Hepatomegaly. Splenomegaly. Normal kidneys. Normal adrenal glands. Normal pancreas. No visible cholelithiasis. No biliary dilation. No evidence of bowel obstruction. Mild thickening of the vega of the proximal ascending colon mild adjacent fat stranding. No pneumatosis. Colonic diverticulosis without evidence of acute diverticulitis. Normal appendix. Unremarkable bladder. No ascites. No pneumoperitoneum. No lymphadenopathy. No acute fracture. No abdominal aortic aneurysm. IMPRESSION: Findings consistent with colitis involving the ascending colon. Nonemergent/incidental findings above Critical Care Time Critical Care Time Critical Care Time: Yes Total Critical Care Time: 45 Attestation: I have personally provided critical care time. Time includes review of lab data, radiology results, discussion with consultants, and monitoring for potential decompensation. Intervention performed as documented. Discharge Plan Discharge Clinical Impression: Colitis Patient Disposition: Home, Self-Care Instructions: Colitis (ED) Additional Instructions: Please follow-up with your primary care physician tomorrow. If you have any worsening or new symptoms, please return to the emergency room or call 911 Prescriptions: New amoxicillin-pot clavulanate [Augmentin] 500-125 mg tablet 1 tab PO TID 7 Days Qty: 21 0RF No Action ibuprofen 600 mg tablet 600 mg PO Q6H PRN (Reason: pain) Qty: 30 0RF promethazine 25 mg tablet 25 mg PO TID PRN (Reason: nausea and vomiting) 7 Days Qty: 21 0RF docusate sodium [Colace] 100 mg capsule 200 mg PO BEDTIME Qty: 60 5RF senna 8.6 mg capsule 8.6 mg PO DAILY PRN (Reason: constipation) Qty: 30 1RF docusate sodium [Colace] 100 mg capsule 200 mg PO BEDTIME Qty: 60 5RF metronidazole 500 mg tablet 500 mg PO Q8H Qty: 30 0RF omeprazole 20 mg capsule,delayed release(DR/EC) 20 mg PO DAILY Qty: 30 5RF Print Language: Faroese
[2025-02-19 21:35] LABS: Basophils Percent Auto 0.4 % (0-2); Eosinophils Absolute Auto 0.1 X10*3/uL (0.0-0.4); Eosinophils Percent Auto 1.8 % (0-4); Hematocrit 43.1 % (42.0-52.0); Hemoglobin 14.8 g/dl (14.0-18.0); Imm Gran Abs Auto 0.01 X10*3/uL (0.00-0.03); Imm Gran Pct Auto 0.1 % (0.0-0.4); Lymphocytes Absolute Auto 2.4 X10*3/uL (1.2-4.9); Lymphocytes Percent Auto 34.5 % (20-40); MANUAL DIFF FLAG NO; Mean Corpuscular HGB Conc 34.3 g/dl (31.0-36.0); Mean Corpuscular Hemoglobin 27.8 pg (27.0-33.0); Mean Corpuscular Volume 80.9 fL (80.0-98.0); Mean Platelet Volume 10.2 fL (9.4-12.4); Monocytes Absolute Auto 0.6 X10*3/uL (0.1-1.2); Monocytes Percent Auto 8.2 % (2-11); Neutrophils Absolute Auto 3.8 x10*3/uL (2.0-8.3); Platelet Count 241 X10*3/uL (160-400); Red Blood Count 5.33 X10*6/uL (4.60-5.80); Red Cell Distribution Width 11.7 % (11.0-16.0); White Blood Count 6.8 X10*3/uL (4.8-10.8)
[2025-02-19 21:37] LABS: Alanine Aminotransferase 82 U/L (0-40); Albumin Level 4.4 g/dL (3.5-5.0); Alkaline Phosphatase 66 U/L (39-117); Anion Gap 15 (12-20); Aspartate Amino Transferase 43 U/L (5-37); Bilirubin Total 0.5 mg/dL (0.0-1.0); Blood Urea Nitrogen 15 mg/dL (9-16); Calcium 9.4 mg/dL (8.4-10.2); Carbon Dioxide 16 mmol/L (22-29); Chloride 112 mmol/L (96-108); Creatinine Clr Calc Pharmacy 158.2; Estimated Glomerular Filt Rate > 60; Glucose Random 99 mg/dL (60-115); Magnesium 1.9 mg/dL (1.6-2.6); Potassium 4.9 mmol/L (3.3-5.1); Sodium 138 mmol/L (135-145); Total Protein 7.8 g/dL (6.5-8.0)
[2025-02-19 21:40] VITALS: BP 117/99; PULSE 75; RESP 20; TEMP 36.8; O2SAT 98
[2025-02-19] MEDS: iohexoL 350 MG/ML 100 ML INFUS..BTL IV (23:30)
[2025-02-19] MEDS: ondansetron HCL 4 MG/2 ML VIAL IVPUSH (23:36)
[2025-02-19] MEDS: Ketorolac Tromethamine 30 MG/ML VIAL IVPUSH (23:36)
[2025-02-19 23:38] VITALS: BP 134/85; PULSE 64; RESP 16; TEMP 36.6; O2SAT 99
[2025-02-20] MEDS: Amoxicillin/Potassium Clav 500 MG TABLET PO (01:52)
[2025-02-20 01:59] VITALS: BP 139/80; PULSE 63; RESP 17; TEMP 36.6; O2SAT 99
== END 2025-02-20 02:01 | disposition home or self-care (01) ==
PROVIDERS: Registered Nurse Emergency; Emergency Provider Emergency Medicine; PCP Internal Medicine
DX: K52.9 Noninfective gastroenteritis and colitis, unspecified (principal); R10.31 Right lower quadrant pain; Z79.899 Other long term (current) drug therapy
CPT/HCPCS: 36415; 74177; 80053; 83735; 85025; 96374; 96375; 99284; J1885; J2405; Q9967

== ENCOUNTER → 2025-02-19 23:13 | Outpatient (BNV) | payer OTHER, SELFPAY | PROVIDERS: Emergency Provider Emergency Medicine; PCP Internal Medicine; Visit Provider Radiology Diagnostic Radiology | DX: R10.31 Right lower quadrant pain (principal) | CPT/HCPCS: 74177 ==

== ENCOUNTER 2025-03-02 11:28 | Outpatient (AMB) | payer OTHER, SELFPAY ==
[2025-03-02 11:29] VITALS: BP 124/70; PULSE 84; RESP 16; TEMP 36.9; O2SAT 95; BMI 39.3
--- NOTE | 2025-03-02 11:29 | MHC.PC.OV ---
Vital Signs 03/02/25 11:29 Height 6 ft Weight 290 lb BMI 39.3 BP 124/70 Blood Pressure Location Rt brachial Position Sitting Respiration 16 Pulse 84 Pulse Source Pulse Oximeter Temp 98.4 F Temp Source Oral Pulse Oximetry (%) 95 Intake Visit Reasons: ED f/u-established care Allergies ciprofloxacin (From Cipro) Allergy (Verified 03/02/25 11:30) Abdominal Pain Medication List - Last Reconciled 03/02/25 by Valencia Lubin MD No Known Home Meds Tobacco use date assessed: 03/02/25 Dental Screening Dental Screen Date: 03/02/25 Did you have a dental visit in the last 12 months?: No Did you have a dental problem in the last 6 months where you did not have access to dental care?: No Was dental information given to patient?: Patient declined HPI ED f/u-established care HPI Details Patient is a 44-year-old gentleman came in today for establish care and also for hospital discharge follow-up He was in [facility] on of this month secondary to sharp pain right lower quadrant radiating to right leg. There was no fever no chills He has no history of kidney stone or past surgeries His liver enzymes are slightly elevated CT scan was ordered to rule out appendicitis Report came back consistent with ascending colon colitis He was started on oral antibiotic in emergency room And discharge with 7 day course of Augmentin Patient is obese as well with BMI of 39.3 Labs done in emergency room reviewed He is done with antibiotic, while taking antibiotic he developed diarrhea which is better now Eating light diet Still have slight discomfort lower abdomen I will be booking him appointment with the gastroenterology for further management Problem List - Colitis - Elevated liver enzymes - Diarrhea - chronic GERD - obesity Patient Instructions - Continue eating light meals, avoiding rice and spicy foods. - Consume yogurt to help manage diarrhea. - Schedule an appointment with a mines safety engineer for further evaluation of colitis. - Contact the doctor if abdominal pain worsens or returns. - Refill and continue taking omeprazole as prescribed. Review of Systems - General: No fever no chills - Neurological: No headaches no dizziness - Ear nose throat: No sore throat no hearing difficulty no ear pain - Cardiovascular: No syncope, no chest pain, no palpitations - Gastrointestinal: No nausea vomiting - Endocrine: No polyuria polydipsia no heat intolerance - Genitourinary: No dysuria , no blood in urine Physical Exam General: No acute distress HEENT: No acute findings Neck: Supple Respiratory system: Able to talk in full sentences, no audible wheeze Cardiovascular: S1-S2 regular in rate and rhythm Gastrointestinal: Discomfort lower abdomen no guarding no rebound bowel sounds positive Extremities: No new findings MISSION ASSESSMENT SPECIALIST: Alert awake oriented x3 motor sensory intact Skin: Normal turgor PFSH Medical History No known health problems Family History Mother Diabetes Social History Household Members Other:: 11 y/o Housing: House Alcohol intake: never Patient Tobacco Use Status: Former Tobacco user Cigarettes Per Day: 3 e-Cigarette/Vaping Use: Never Used service: No Current occupational status: employed Cognitive needs: No Hearing needs: No Vision needs: No Questionnaire Thrive Questionnaire Date Thrive assessed: 01/25/22 PB-7 AMB Questionnaire PB-7 Date PB - 7 assessed: 01/25/22 Source: Developed by Drs. Sridhar Hoover, Anna Baldwin, Davion Valle and colleagues, with an educational prisca from [employer]. Physical exam (Primary Care) Vital Signs: Last Vital Signs Temp 98.4 F 03/02/25 11:29 Pulse 84 03/02/25 11:29 Resp 16 03/02/25 11:29 BP 124/70 03/02/25 11:29 Pulse Ox 95 03/02/25 11:29 BMI result Body Mass Index 39.3 Tobacco/Smoking Status: Tobacco use Status Tobacco use date assessed 03/02/25 03/02/25 11:35 Patient Tobacco Use Status Former Tobacco user 03/02/25 11:31 e-Cigarette/Vaping Use Never Used 03/02/25 11:31 Thrive Assessment: Date of Thrive Assessment Date Thrive assessed 01/25/22 03/02/25 11:31 Coding Level of Care Code New Pt Level 4 (15137) Diagnoses Establishing care with new doctor, encounter for Z76.89 Colitis K52.9 Chronic GERD K21.9 Assessment & Plan Assessment & Plan (1) Establishing care with new doctor, encounter for: Code(s): Z76.89 - Persons encountering health services in other specified circumstances Category: Medical (2) Colitis: Code(s): K52.9 - Noninfective gastroenteritis and colitis, unspecified Category: Medical (3) Chronic GERD: Code(s): K21.9 - Gastro-esophageal reflux disease without esophagitis Category: Medical Plan Patient is a 44-year-old gentleman came in today for establish care and also for hospital discharge follow-up He was in [facility] on of this month secondary to sharp pain right lower quadrant radiating to right leg. There was no fever no chills He has no history of kidney stone or past surgeries His liver enzymes are slightly elevated CT scan was ordered to rule out appendicitis Report came back consistent with ascending colon colitis He was started on oral antibiotic in emergency room And discharge with 7 day course of Augmentin Patient is obese as well with BMI of 39.3 Labs done in emergency room reviewed He is done with antibiotic, while taking antibiotic he developed diarrhea which is better now Eating light diet Still have slight discomfort lower abdomen I will be booking him appointment with the gastroenterology for further management Problem List - Colitis - Elevated liver enzymes - Diarrhea - chronic GERD - obesity Patient Instructions - Continue eating light meals, avoiding rice and spicy foods. - Consume yogurt to help manage diarrhea. - Schedule an appointment with a mines safety engineer for further evaluation of colitis. - Contact the doctor if abdominal pain worsens or returns. - Refill and continue taking omeprazole as prescribed. Orders: Referrals Gastroenterology Referral K52.9 - Noninfective gastroenteritis and colitis, unspecified Medications: Refilled omeprazole 20 mg PO DAILY 90 caps 3RF
== END 2025-03-02 11:47 | disposition home or self-care (01) ==
LOC: HO.HMCC 11:28
PROVIDERS: PCP Internal Medicine; Visit Provider Internal Medicine
DX: Z76.89 Persons encountering health services in other specified circumstances (principal); K52.9 Noninfective gastroenteritis and colitis, unspecified; K21.9 Gastro-esophageal reflux disease without esophagitis

== ENCOUNTER → 2025-03-02 11:28 | Outpatient (BNVA) | payer OTHER, SELFPAY | PROVIDERS: PCP Internal Medicine; Visit Provider Internal Medicine | DX: Z13.89 Encounter for screening for other disorder (principal) ==

== ENCOUNTER 2025-06-28 09:18 | Outpatient (AMB) | payer OTHER, SELFPAY ==
[2025-06-28 09:21] VITALS: BP 138/84; PULSE 69; RESP 16; TEMP 36.8; O2SAT 97; BMI 39.2
--- NOTE | 2025-06-28 09:21 | A.OFFPC_ITS ---
Vital Signs 06/28/25 09:21 Height 6 ft Weight 289 lb BMI 39.2 BP 138/84 Blood Pressure Location Lt brachial Position Sitting Respiration 16 Pulse 69 Pulse Source Pulse Oximeter Temp 98.3 F Temp Source Oral Pulse Oximetry (%) 97 Oxygen Delivery Method Room Air Intake Visit Reasons: Annual PE Closing Agent Required: No Accompanied by: Self / Same As Patient Allergies ciprofloxacin (From Cipro) Allergy (Verified 06/28/25 09:23) Abdominal Pain Medication List - Last Reconciled 06/28/25 by Valencia Lubin MD No Known Home Meds omeprazole 20 mg PO DAILY Tobacco use date assessed: 06/28/25 Dental Screening Dental Screen Date: 06/28/25 Did you have a dental visit in the last 12 months?: No Did you have a dental problem in the last 6 months where you did not have access to dental care?: No Was dental information given to patient?: Patient has dentist HPI Annual PE HPI Details History of Present Illness The patient is a 44-year-old male presenting with physical examination and management of chronic GERD with elevated liver enzymes. PreHypertension: - Blood pressure recorded at 138/82 mmHg during the visit. Chronic Gastroesophageal Reflux Disease (GERD): - The patient has a history of chronic G ERD managed with omeprazole 20 mg. - Reports experiencing pain in the abdom inal region attributed to GERD. - Consumes spicy foods and tomatoes that exacerbate symptoms. - Has been advised to take omeprazole tw ice daily for symptom management. Elevated Liver Enzymes: - Reports stable elevated liver enzymes; AST at 43 and ALT at 82. - A repeat test for liver enzymes is neetu nned for today. Health Maintenance - Tetanus vaccine up to date as of 2020. - colonoscopy declined [facility] - Scheduled appointment with a gastroent erologist at [facility] in July. Patient Instructions - Increase omeprazole dosage to twice da ang. - Avoid spicy foods and tomatoes. - Undergo a repeat liver enzyme test togaby ruby. - try to lose wt f.u 1 year PE Review of Systems - General: No fever no chills - Neurological: No headaches no dizzin ess - Ear nose throat: No sore throat no hearing difficulty no ear pain - Cardiovascular: No syncope, no chest pain, no palpitations - Gastrointestinal: No nausea vomiting or diarrhea - Endocrine: No polyuria polydipsia no heat intolerance - Genitourinary: No dysuria - Skin: No new complaints Physical Exam General: Cooperative, healthy appearing, comfortable, no acute distress Orientation: Patient oriented x3 Limitations: none Head: Normal to inspection Ears: Within normal limit visually Nose: Normal external nose present Face and sinus: Normal facial exam Eyes: Appearance normal, extraocular movement intact pupils reactive Neck: Normal visual inspection and supple Respiratory: Normal respiratory effort and able to speak in complete sentences. Clear to auscultation, no stridor Cardiovascular: S1 and S2 RRR GI: Normal to inspection. Soft to palpation and nontendera Skin: Turgor normal, no acute findings Neuro: Patient oriented x3, motor sensory intact, balance intact, tandem pass Extremities: Normal to inspection, ROM intact . [facility] Medical History No known health problems Family History Mother Diabetes Social History Household Members Other:: 11 y/o Housing: House Alcohol intake: never Patient Tobacco Use Status: Former Tobacco user Cigarettes Per Day: 3 e-Cigarette/Vaping Use: Never Used service: No Current occupational status: employed Cognitive needs: No Hearing needs: No Vision needs: No Questionnaire PHQ-9 Over the last 2 weeks, how often have you been bothered by any of the following problems? 1. Little interest or pleasure in doing things: not at all 2. Feeling down, depressed, or hopeless: not at all 3. Trouble falling or staying asleep, or sleeping too much: not at all 4. Feeling tired or having little energy: several days 5. Poor appetite or overeating: several days 6. Feeling bad about yourself - or that you are a failure or have let yourself or your family down: not at all 7. Trouble concentrating on things, such as reading the newspaper or watching television: not at all 8. Moving or speaking so slowly that other people could have noticed. Or the opposite - being so fidgety or restless that you have been moving around a lot more than usual: not at all 9. Thoughts that you would be better off or of hurting yourself in some way: not at all Total score: 2 Depression Screening Interpretation: Negative Depression Screening Done: Yes 26394 - PHQ-9 Billing: Yes Source: Developed by Drs. Sridhar Hoover, Anna Baldwin, Davion Valle and colleagues, with an educational prisca from [employer]. Thrive Questionnaire Date Thrive assessed: 06/26/25 I am a: Patient What is your living situation today?: I have a steady place to live Within the past 12 months, did the food you bought not last and you didn't have the money to get more?: Never true Within the past 12 months, did you worry whether your food would run out before you got money to buy more?: Never true Do you have trouble paying for medicines?: No Do you have trouble getting transportation to medical appointments?: No Do you have trouble paying your heating and electricity bill?: No Do you have trouble taking care of your child, family member or friend?: No Do you have trouble with day-to-day activities such as bathing, preparing meals, shopping, managing finances, etc.?: No Are you currently unemployed and looking for a job?: No Are you interested in more education?: Yes Please select the resources that you would like help with: None Currently or been in a relationship where the following occur: No concerns reported THRIVE Score: 0 AUDIT C Alcohol Use Questionnaire (AUDIT-C) 1. How often do you have a drink containing alcohol?: Never 3. How often do you have six or more drinks on one occasion?: Never Total Score: 0 PB-7 AMB Questionnaire PB-7 Date PB - 7 assessed: 01/25/22 Feeling nervous, anxious, or on edge: 0 = Not at all Not being able to stop or control worryin = Not at all Worrying too much about different things: 1 = Several days Trouble relaxin = Several days Being so restless that it is hard to sit still: 1 = Several days Becoming easily annoyed or irritable: 0 = Not at all Feeling afraid as if something awful might happen: 0 = Not at all Total PB-7 score (0-4 normal; 5-9 mild; 10-14 moderate; 15-21 severe): 3 Source: Developed by Anna Holt Kurt Kroenke and colleagues, with an educational prisca from [employer]. PB-7 Assessment Billing PB-7 Assessment Tool: PB-7 Assessment [id number] Physical exam (Primary Care) Vital Signs: Last Vital Signs Temp 98.3 F 06/28/25 09:21 Pulse 69 06/28/25 09:21 Resp 16 06/28/25 09:21 BP 138/84 06/28/25 09:21 Pulse Ox 97 06/28/25 09:21 Oxygen Delivery Method Room Air 06/28/25 09:21 BMI result Body Mass Index 39.2 Tobacco/Smoking Status: Tobacco use Status Tobacco use date assessed 06/28/25 06/28/25 09:26 Patient Tobacco Use Status Former Tobacco user 06/28/25 09:21 e-Cigarette/Vaping Use Never Used 06/28/25 09:21 PHQ-9: PHQ-9 Score PHQ-9: Total score 2 06/28/25 09:35 Depression Screening Interpretation: Negative Thrive Assessment: Date of Thrive Assessment Date Thrive assessed 06/26/25 06/28/25 09:21 Currently or been in a relationship where the following occur: No concerns reported Coding Level of Care Code Est Pt Level 3 (46315) Est Pt Prev Care 40-64y(78868) Diagnoses Encounter for general adult medical examination with abnormal findings Z00.01 LFT elevation R79.89 Morbid obesity due to excess calories E66.01 Chronic GERD K21.9 Additional Codes PHQ-9 - 75487 - PHQ-9 Billing: Yes ([id number]) PB-7 Assessment Billing - PB-7 Assessment Tool: PB-7 Assessment [id number] ([id number]) Assessment & Plan Assessment & Plan (1) Encounter for general adult medical examination with abnormal findings: Code(s): Z00.01 - Encounter for general adult medical examination with abnormal findings Category: Medical (2) LFT elevation: Code(s): R79.89 - Other specified abnormal findings of blood chemistry Category: Medical (3) Morbid obesity due to excess calories: Code(s): E66.01 - Morbid (severe) obesity due to excess calories Category: Medical (4) Chronic GERD: Code(s): K21.9 - Gastro-esophageal reflux disease without esophagitis Category: Medical Plan PreHypertension: - Blood pressure recorded at 138/82 mmHg during the visit. Chronic Gastroesophageal Reflux Disease (GERD): - The patient has a history of chronic GERD managed with omeprazole 20 mg. - Reports experiencing pain in the abdominal region attributed to GERD. - Consumes spicy foods and tomatoes that exacerbate symptoms. - Has been advised to take omeprazole twice daily for symptom management. Elevated Liver Enzymes: - Reports stable elevated liver enzymes; AST at 43 and ALT at 82. - A repeat test for liver enzymes is planned for today. Health Maintenance - Tetanus vaccine up to date as of 2020. - colonoscopy declined [facility] - Scheduled appointment with a pony cylinder press operator at [facility] in July. Patient Instructions - Increase omeprazole dosage to twice daily. - Avoid spicy foods and tomatoes. - Undergo a repeat liver enzyme test today. - try to lose wt f.u 1 year PE . Orders: Orders Liver Panel Today R79.89 - Other specified abnormal findings of blood chemistry Medications: Changed From omeprazole 20 mg PO DAILY 90 caps 3RF To omeprazole 20 mg PO BID 180 caps 0RF
== END 2025-06-28 10:14 | disposition home or self-care (01) ==
LOC: HO.HMCC 09:19
PROVIDERS: PCP Internal Medicine; Visit Provider Internal Medicine
DX: Z00.01 Encounter for general adult medical examination with abnormal findings (principal); K21.9 Gastro-esophageal reflux disease without esophagitis; E66.01 Morbid (severe) obesity due to excess calories; R79.89 Other specified abnormal findings of blood chemistry; Z68.39 Body mass index [BMI] 39.0-39.9, adult

== ENCOUNTER 2025-06-28 09:18 | Outpatient (REF) | payer OTHER, SELFPAY ==
[2025-06-28 18:16] LABS: Alanine Aminotransferase 72 U/L (0-40); Albumin Level 4.8 g/dL (3.5-5.0); Alkaline Phosphatase 67 U/L (39-117); Aspartate Amino Transferase 31 U/L (5-37); Total Protein 7.1 g/dL (6.5-8.0)
== END 2025-06-28 09:19 | disposition home or self-care (01) ==
LOC: HO.HMGCLDS 09:18
PROVIDERS: PCP Internal Medicine; Visit Provider Internal Medicine
DX: Z00.01 Encounter for general adult medical examination with abnormal findings (principal); E66.01 Morbid (severe) obesity due to excess calories; R79.89 Other specified abnormal findings of blood chemistry; K21.9 Gastro-esophageal reflux disease without esophagitis; Z68.39 Body mass index [BMI] 39.0-39.9, adult
CPT/HCPCS: 36415; 80076; 96127

== ENCOUNTER 2025-07-25 09:02 | Outpatient (REF) | payer OTHER, SELFPAY ==
[2025-07-25 09:55] LABS: MANUAL DIFF FLAG NO
[2025-07-25 10:40] LABS: Hematocrit 41.0 % (42.0-52.0); Hemoglobin 13.8 g/dl (14.0-18.0); Imm Gran Abs Auto 0.02 X10*3/uL (0.00-0.03); Imm Gran Pct Auto 0.2 % (0.0-0.4); Lymphocytes Absolute Auto 3.3 X10*3/uL (1.2-4.9); Mean Corpuscular HGB Conc 33.7 g/dl (31.0-36.0); Mean Corpuscular Hemoglobin 27.7 pg (27.0-33.0); Mean Corpuscular Volume 82.3 fL (80.0-98.0); NRBC Abs Auto 0.000 X10*3/uL (0.0-0.012); NRBC Pct Auto 0.0 /100WBC (0.0-0.2); Platelet Count 253 X10*3/uL (160-400); Red Blood Count 4.98 X10*6/uL (4.60-5.80); White Blood Count 8.9 X10*3/uL (4.8-10.8)
[2025-07-25 11:34] LABS: Alanine Aminotransferase 81 U/L (0-40); Albumin Level 5.0 g/dL (3.5-5.0); Alkaline Phosphatase 71 U/L (39-117); Anion Gap 11 (12-20); Aspartate Amino Transferase 35 U/L (5-37); Blood Urea Nitrogen 16 mg/dL (9-16); Calcium 10.3 mg/dL (8.4-10.2); Carbon Dioxide 27 mmol/L (22-29); Chloride 106 mmol/L (96-108); Estimated Glomerular Filt Rate > 60; Potassium 4.2 mmol/L (3.3-5.1); Sodium 140 mmol/L (135-145); Total Protein 7.6 g/dL (6.5-8.0)
[2025-07-25 11:35] LABS: Ferritin 424 ng/mL (20-250)
== END 2025-07-25 09:03 | disposition home or self-care (01) ==
LOC: HO.LAB 09:02
PROVIDERS: PCP Internal Medicine; Visit Provider Internal Medicine Gastroenterology
DX: K75.81 Nonalcoholic steatohepatitis (NASH) (principal); R10.32 Left lower quadrant pain
CPT/HCPCS: 36415; 80053; 82728; 85025; 86140

== ENCOUNTER 2025-07-25 09:02 | Outpatient (AMB) | payer OTHER, SELFPAY ==
[2025-07-25 09:06] VITALS: BP 142/61; PULSE 74; BMI 38.6
--- NOTE | 2025-07-25 09:06 | A.OFFVIS_ITS ---
Vital Signs 07/25/25 09:06 Height 6 ft Weight 284 lb 6.341 oz BMI 38.6 BP 142/61 H Blood Pressure Location Lt brachial Position Sitting Pulse 74 Intake Visit Reasons: Noninfective gastroenteritis Intake Note: Jonas presents in the office as a new patient for noninfective gastroenteritis. CC: last 5 days he states that he has had bloody stools - thinks his infectious colitis has some back. States that he was told he has a tiny inguinal hernia and his PCP told him his pancreatitis and GRAHAM. Flat[place] Tier Required: No Allergies ciprofloxacin (From Cipro) Allergy (Verified 07/25/25 09:07) Abdominal Pain HPI HPI Noninfective gastroenteritis: Details: HPI 44 yr old m with umbilical/inguinal hernias GERD, fatty liver who I am seeing for assessment for rectal bleeding He noted rectal bleeding for 5 d blood mixed with stool blood is fresh and runny stool is formed last week he did feel constipated normally he is ok he noted pain in lower abdomen, cutting sensation, mild worse with touching, might be better with passing stool denies n/v no fever GERD is controlled ROS: Constitutional : No Weight loss, No Fever, No Chills ENT/Mouth : No sore throat, No Rhinorrhea Eyes: No Swelling, No Redness Cardiovascular : No Chest Pain, No SOB, No Edema Respiratory : No Cough, No Sputum, No Wheezing Gastrointestinal : see HPI Genitourinary : NO Dysuria, No Urinary Frequency, No Hematuria, No Urgency Musculoskeletal : + joint pain, No Myalgias, No Joint Swelling Skin : No Skin Lesions, No rash Neuro : No Weakness, No Numbness, No Dizziness, No Headache Psych : No Anxiety/Panic, No Depression Heme/Lymph: No Bruising, No Lymphadenopathy Endocrine : No Polyuria, No Polydipsia All other systems reviewed and are negative. Medical History GERD hernias Surgical History none Family History no FH of colon cancer Social History ex smoker, no alcohol works at [employer] EXAM: GENERAL: The patient is well developed and nontoxic. VITAL SIGNS:see workflow HEENT: Nonicteric sclerae, PERRLA, EOMI. Oropharynx clear. Moist mucous membranes. Conjunctivae appear well perfused. No thyroid mass. CHEST: Chest wall is nontender. HEART: Regular rate and rhythm without murmurs. LUNGS: Clear to auscultation bilaterally. ABDOMEN: Soft, positive bowel sounds, nontender, no organomegaly.no flank tenderness SKIN: No rash, no excessive bruising, petechiae, or purpura. NEUROLOGIC: Cranial nerves II-XII intact without motor/sensory deficit. Psych: normal affect A/P: 1/ LLQ pain, rectal bleedding, vitals are good, ? diverticulitis or hemorrhoidal bleed, low lying rectal lesion PLAN: /1 Labs today 2/ course of augmentin for 7 d meantime --if worsens call office, or go to ED [facility] Medical History No known health problems Family History Mother Diabetes Social History Household Members Other:: 11 y/o Housing: House Alcohol intake: never Patient Tobacco Use Status: Former Tobacco user Cigarettes Per Day: 3 e-Cigarette/Vaping Use: Never Used service: No Current occupational status: employed Cognitive needs: No Hearing needs: No Vision needs: No Physical Exam Vital Signs: Last Vital Signs Pulse 74 07/25/25 09:06 BP 142/61 H 07/25/25 09:06 BMI result Body Mass Index 38.6 Assessment & Plan Assessment & Plan (1) Abdominal pain, left lower quadrant: Code(s): R10.32 - Left lower quadrant pain Category: Medical Plan: as above (2) Abdominal pain, acute, left lower quadrant: Code(s): R10.32 - Left lower quadrant pain Category: Medical Plan: as above Orders: Orders Complete Blood Count Auto Diff Today R10.32 - Left lower quadrant pain Comprehensive Met. Panel Today K75.81 - Nonalcoholic steatohepatitis (GRAHAM), R10.32 - Left lower quadrant pain C Reactive Protein Today R10.32 - Left lower quadrant pain Ferritin Today R10.32 - Left lower quadrant pain Referrals GI Procedure Notification R10.32 - Left lower quadrant pain Medications: New amoxicillin-pot clavulanate 500-125 mg (Augmentin) 1 tab PO TID 21 tabs 0RF sodium,potassium,mag sulfates 17.5-3.13-1.6 gram (Suprep Bowel Prep Kit) DILUTE; drink 1/2 at 6-8 pm and half at 11 PM- 1AM 354 mL 0RF Coding Level of Care Code Est Pt Level 4 (82972) Diagnoses Abdominal pain, left lower quadrant R10.32 Abdominal pain, acute, left lower quadrant R10.32
== END 2025-07-25 09:32 | disposition home or self-care (01) ==
LOC: HO.HGI 09:03
PROVIDERS: PCP Internal Medicine; Visit Provider Internal Medicine Gastroenterology
DX: R10.32 Left lower quadrant pain (principal)
CPT/HCPCS: 99214